=== PATIENT | male | born 1980 | race Caucasian/White ===

== ENCOUNTER 2019-06-18 18:39 | Emergency (ER) | payer BC, OTHER ==
[~2019-06-18] VITALS: Ht 185.4 cm; Wt 74.4 kg
[2019-06-18 18:41] VITALS: BP 130/82
[2019-06-18] MEDS ORDERED: LIDOcaine 1% W/epiNEPHrine 1:200,000 10ml vial IJ ONE (19:00)
[2019-06-18] MEDS ORDERED: HYDROcodone/acetaminophen 10/325mg tab PO ONE (19:00)
[2019-06-18] MEDS ORDERED: LIDOcaine 1% W/epiNEPHrine 1:200,000 10ml vial IJ STA (19:36)
[2019-06-18] MEDS ORDERED: HYDR-4353 PO (19:59)
== END 2019-06-18 20:16 | disposition home or self-care (01) ==
LOC: ER 18:40
DX: S52.502A Unspecified fracture of the lower end of left radius, initial encounter for closed fracture (principal); S52.612A Displaced fracture of left ulna styloid process, initial encounter for closed fracture; Z79.899 Other long term (current) drug therapy; W19.XXXA Unspecified fall, initial encounter; Y93.89 Activity, other specified; Y92.89 Other specified places as the place of occurrence of the external cause; Y99.8 Other external cause status
CPT/HCPCS: 25605; 73100; 73110; 99284

== ENCOUNTER 2019-06-23 11:15 | Day surgery (SDC) | payer BC ==
[~2019-06-23] VITALS: Ht 185.4 cm; Wt 74.0 kg
[2019-06-23] VITALS (9 sets, daily range): BP systolic 125–151; BP diastolic 57–79
[~2019-06-23 11:15] MED LIST: HYDR-4353 PO; cefazolin/dext.iso 2gm/100ml 100 ML IV ONE; famotidine 20mg tablet PO ONE; ringers solution, lacted 1,000 ML IV SCH; vancomycin 1,500 MG in NS 500ml IV soln IV ONE
[2019-06-23] MEDS ORDERED: DUPI300S (12:35)
[2019-06-23 13:40] LABS: BASOPHILS % (AUTO) 0.4 % (0-1); EOSINOPHILS # (AUTO) 0.1 X10'3 (0-0.9); EOSINOPHILS % (AUTO) 1.7 % (0-6); LYMPHOCYTES # (AUTO) 2.2 X10'3 (1.1-4.8); LYMPHOCYTES % (AUTO) 28.4 % (21-51); MEAN CORPUSCULAR HGB CONC 33.8 g/dL (33.0-36.5); MEAN CORPUSCULAR VOLUME 91.8 FL (78-98); MEAN PLATELET VOLUME 9.1 FL (7.4-10.4); MONOCYTES # (AUTO) 0.4 X10'3 (0-0.9); MONOCYTES % (AUTO) 5.7 % (2-12); NEUTROPHILS # (AUTO) 5.1 X10'3 (1.8-7.7); NEUTROPHILS % (AUTO) 63.8 % (42-75); PRE OP HEMATOCRIT 42.1 % (42.0-52.0); PRE OP HEMOGLOBIN 14.2 g/dL (14.0-17.9); PRE OP PLATELET COUNT 224 X10'3 (140-440); RED BLOOD COUNT 4.59 X10'6 (4.70-6.10); RED CELL DISTRIBUTION WIDTH 13.2 % (11.5-14.5)
[2019-06-23 13:55] LABS: ALBUMIN 3.8 G/DL (3.4-5.0); ALBUMIN/GLOBULIN RATIO 1.1 (1.1-1.5); ALKALINE PHOSPHATASE 64 IU/L (46-116); BLOOD UREA NITROGEN 16 MG/DL (7-18); BUN/CREATININE RATIO 16.7 (5.4-32.0); CHLORIDE 106 MMOL/L (99-107); CREATININE 0.96 MG/DL (0.60-1.10); PRE OP ALT 20 U/L (30-65); PRE OP ANION GAP 6 (8-16); PRE OP AST 17 U/L (10-37); PRE OP BILIRUB, TOTAL 0.4 MG/DL (0.0-1.0); PRE OP GLUCOSE 79 MG/DL (70-104); PRE OP POTASSIUM 4.5 MMOL/L (3.4-5.1); PRE OP SODIUM 141 MMOL/L (135-145); TOTAL CARBON DIOXIDE 28.9 MMOL/L (24-32); TOTAL PROTEIN 7.2 G/DL (6.4-8.2); eGFR 87 ML/MIN
[2019-06-23] MEDS ORDERED: ringers solution, lacted 1,000 ML IV SCH (14:12)
[2019-06-23] MEDS ORDERED: morphine 2 MG/ML inj. syringe IV PRN (14:15)
[2019-06-23] MEDS ORDERED: ondansetron/PF 4mg/2ml inj IV PRN (14:15)
[2019-06-23] MEDS ORDERED: hydrALAZINE 20mg/ml inj. IV PRN (14:15)
[2019-06-23] MEDS ORDERED: labetalol 20mg/4ml (5mg/ml) syringe IV PRN (14:15)
[2019-06-23] MEDS ORDERED: morphine 4 MG/ML inj SYRINge IV PRN (14:15)
[2019-06-23] MEDS ORDERED: fentaNYL/PF 50MCG/1 ML 2ML syringe IV PRN (14:15)
[2019-06-23] MEDS ORDERED: midazolam 2 mg/2 ml injection ONE (14:45)
[2019-06-23] MEDS ORDERED: fentaNYL/PF 50MCG/1 ML 2ML syringe ONE (14:45)
[2019-06-23] MEDS ORDERED: propofol inj 20 ML IV ONE (14:48)
[2019-06-23] MEDS ORDERED: LIDOcaine 1%/PF 5ML 10 MG/ML VIAL ONE (14:48)
[2019-06-23] MEDS ORDERED: sevoflurane 250ml liquid IH ONE (14:50)
[2019-06-23] MEDS ORDERED: dexamethasone sod phosphate 10mg/ml inj ONE (14:50)
--- NOTE | 2019-06-23 15:45 | NUR ---
Received from OR via [facility], accompanied by Anesthesiologist DR ZEE and report given by Anesthesiologist. PT VERY PAINFUL, LEFT HAND/WRIST W/BJ WRAP COVERING SPLINT/DRSG CDI, FINGERS PWD, WASH TANK TENDER 1-2 SECONDS. Addendum: 06/23/19 at 1730 by Maci Alaniz RN Amended: Links added.
[2019-06-23] MEDS: fentaNYL/PF 50MCG/1 ML 2ML syringe IV PRN ×4 (15:51→16:14)
[2019-06-23] MEDS ORDERED: ketorolac trometh. 30mg/ml inj. IV ONE (16:00)
[2019-06-23] MEDS ORDERED: acetaminophen 1,000mg/100ml IV 100 ML IV ONE (16:00)
[2019-06-23] MEDS ORDERED: HYDROcodone/acetaminophen 10/325mg tab PO ONE (16:35)
--- NOTE | 2019-06-23 17:05 | NUR ---
PT NOW COMFORTABLE, TOLERATING PO FLUIDS, D/C INSTRUCTIONS GIVEN AND GONE OVER W/PT WHO VERBALIZED UNDERSTANDING, PT D/CD TO HOME VIA W/C TO PRIVATE VEHICLE W/O INCIDENT. Addendum: 06/23/19 at 1737 by Maci Alaniz RN Amended: Links added.
== END 2019-06-23 17:05 | disposition home or self-care (01) ==
LOC: PAS 11:15
PROVIDERS: ATTEND Orthopaedic Surgery
DX: S52.562A Barton's fracture of left radius, initial encounter for closed fracture (principal); W19.XXXA Unspecified fall, initial encounter; Y93.89 Activity, other specified; Y92.89 Other specified places as the place of occurrence of the external cause; Y99.8 Other external cause status; Z79.899 Other long term (current) drug therapy
CPT/HCPCS: 25607; 36415; 80053; 85025; 93005; A6222; C1713; J0131; J1100; J1885; J2250; J2704; J3010; J3370; J7040; J7120; A4618; A6446; A6449; A7000